=== PATIENT | male | born 1985 | race American Indian/Alaskan Native ===

== ENCOUNTER 2016-06-04 08:57 | Emergency (ER) | payer SELFPAY ==
--- NOTE | 2016-06-04 13:27 | ER ---
SUBJECTIVE: The patient is a 30-year-old, normally healthy male. he skinned his right fraga about 3 weeks ago. It is still not healed, was scabbing well and he hit it with a bar in the gym and ripped the scab off. It began to bleed again, so he comes in for evaluation and wondering it is taking so long to heal. He also has some skin rash and soreness on his left great toe. He does work out at the gym multiple times. He uses their showers. No other trauma or no shortness of breath. No fevers or chills. No drainage, no bleeding now. PAST MEDICAL HISTORY: Unremarkable. He states he is healthy. He does not take any medicines. No allergies. No substance abuse. REVIEW OF SYSTEMS: Unremarkable with the exception of the right fraga and the left great toe as discussed in HPI, please see HPI. OBJECTIVE: Vital Signs: Stable. He is afebrile. Healthy appearing. No distress. HEENT: Normocephalic, atraumatic. General: No respiratory distress. Good historian. Musculoskeletal: His right lower leg does show a scab over an area of his anterior midshin. There is mild warmth that is slightly red around the scab. There is no drainage or discharge or bleeding. He is forming a good scab and it appears to be in the process of healing. It is somewhat inflamed and it could be mildly infected. Extremities: Focused examination of his left great toe shows typical tinea pedis, not surprising as he works in the gym. There is peeling of the skin. ASSESSMENT: 1. Abrasions/contusion to right fraga area, 3 weeks ago. It is scabbing over and healing, with possible or mild infection in the area. 2. Tinea pedis. PLAN: Prescription for Lotrisone ointment to apply at the toe and feet and any areas where he has tinea. Prescription for Keflex to insure that the right lower extremity fraga contusion does not get worse or infected and allow to heal. Would soak feet in warm water, Epsom salts, mild detergent, 1 drop of bleach, and keep it clean and dry, and can apply the Lotrisone and get [id number] medications for athlete's foot too. [facility] /[id number]
== END 2016-06-04 09:49 | disposition home or self-care (01) ==
LOC: DL.ED 08:57
DX: B35.3 Tinea pedis (principal)
CPT/HCPCS: 99283

== ENCOUNTER 2017-03-25 04:20 | Emergency (ER) | payer SELFPAY ==
[2017-03-25] MEDS ORDERED: Sodium Chloride 0.9% 1,000 ML IV ONE (04:42)
[2017-03-25 05:07] LABS: CHLORIDE,CL 100 mmol/L (101-111); SODIUM,NA 134 mmol/L (135-145)
--- NOTE | 2017-03-25 05:48 | EDM.PDOCBH ---
<Eloise Gomez - Last Filed: 03/25/17 07:02> ED HPI GENERAL MEDICAL PROBLEM - General Chief Complaint: Behavioral/Psych Stated Complaint: TOOK "A LOT" OF PILLS [id number] Time Seen by Provider: 03/25/17 04:30 Source of Information: Reports: Patient History Limitations: Reports: No Limitations - History of Present Illness INITIAL COMMENTS - FREE TEXT/NARRATIVE: Reports taking 13 or 14 zoloft pills about 1-2 hours ago. Admitted to feeling depressed, nothing specific tonight different just everything piling up together. States more trying to get attention than to harm self. Denies previous attempts. Denies ingestion of alcohol or other drugs tonight. Nausea, no emesis. - Related Data Allergies Allergy/AdvReac Type Severity Reaction Status Date / Time No Known Allergies Allergy Verified 03/25/17 04:26 Home Meds: Home Meds . [No Known Home Meds] 10/16/13 [History] Past Medical History - Past Health History Medical/Surgical History: Denies Medical/Surgical History HEENT History: Reports: None Cardiovascular History: Reports: None Respiratory History: Reports: None Gastrointestinal History: Reports: None Genitourinary History: Reports: None Musculoskeletal History: Reports: None Neurological History: Reports: None Psychiatric History: Reports: None Endocrine/Metabolic History: Reports: None Hematologic History: Reports: None Immunologic History: Reports: None Oncologic (Cancer) History: Reports: None Dermatologic History: Reports: None - Past Surgical History Head Surgeries/Procedures: Reports: None HEENT Surgical History: Reports: Tonsillectomy Social & Family History - Family History Family Medical History: Noncontributory - Tobacco Use Smoking Status *Q: Current Every Day Smoker Years of Tobacco use: 15 Packs/Tins Daily: 0.9 Used Tobacco, but Quit: No Second Hand Smoke Exposure: Yes - Caffeine Use Caffeine Use: Reports: Coffee, Soda - Alcohol Use Days Per Week of Alcohol Use: 0 - Recreational Drug Use Recreational Drug Use: Yes Recreational Drug Type: Reports: Marijuana/Hashish ED ROS GENERAL - Review of Systems Review Of Systems: ROS reveals no pertinent complaints other than HPI. ED EXAM, BEHAVIORAL HEALTH - Physical Exam Exam: See Below Exam Limited By: No Limitations General Appearance: Alert, No Apparent Distress Eye Exam: Bilateral Eye: EOMI, PERRL (4mm) Ears: Normal External Exam Nose: Normal Inspection Throat/Mouth: Normal Inspection Head: Atraumatic, Normocephalic Neck: Normal Inspection Respiratory/Chest: No Respiratory Distress, Lungs Clear, Normal Breath Sounds Cardiovascular: Normal Peripheral Pulses, Regular Rate, Rhythm GI/Abdominal: Normal Bowel Sounds, Soft Back Exam: Normal Inspection Extremities: Normal Inspection Neurological: Alert, Normal Cognition, Oriented x 3. No: Tremor Psychiatric: Alert, Oriented, Flat Affect, Suicidal Thoughts Skin Exam: Warm, Dry, Intact, Normal color COURSE, BEHAVIORAL HEALTH COMP - Course Vital Signs: Last Vital Signs Temp 36.9 C 03/25/17 07:42 Pulse 88 03/25/17 04:23 Resp 20 03/25/17 07:42 BP 131/81 03/25/17 07:42 Pulse Ox 96 03/25/17 07:42 Orders, Labs, Meds: Active Orders 24 hr Category Date Time Status EKG 12 Lead [EKG Documentation Completion] [RC] URGENT Care 03/25/17 04:33 Active Laboratory Tests 03/25/17 03/25/17 03/25/17 Range/Units 04:42 04:42 04:42 WBC 6.5 (5.0-10.0) 10^3/uL RBC 4.84 (4.6-6.2) 10^6/uL Hgb 14.9 (14.0-18.0) g/dL Hct 43.1 (40.0-54.0) % MCV 89.0 (80-100) fL MCH 30.8 (27.0-34.0) pg MCHC 34.6 (33.0-35.0) g/dL Plt Count 279 (150-450) 10^3/uL Neut % (Auto) 59.2 (42.2-75.2) % Lymph % (Auto) 26.8 (20.5-50.1) % [place] % (Auto) 12.3 H (2-8) % Eos % (Auto) 1.4 (1.0-3.0) % Baso % (Auto) 0.3 (0.0-1.0) % Sodium 134 L (135-145) mmol/L Potassium 3.8 (3.6-5.0) mmol/L Chloride 100 L (101-111) mmol/L Carbon Dioxide 28.0 (21.0-31.0) mmol/L Anion Gap 9.8 BUN 12 (7-18) mg/dL Creatinine 0.7 (0.6-1.3) mg/dL Est Cr Clr Drug Dosing 167.83 mL/min Estimated GFR (MDRD) > 60 BUN/Creatinine Ratio 17.14 Glucose 88 (74-105) mg/dL Calcium 9.2 (8.4-10.2) mg/dl Total Bilirubin 0.9 (0.2-1.0) mg/dL AST 138 H (10-42) IU/L ALT 302 H (10-60) IU/L Alkaline Phosphatase 153 H (42-121) IU/L Creatine Kinase 169 (26-174) IU/L Total Protein 7.9 (6.7-8.2) g/dl Albumin 4.1 (3.2-5.5) g/dl Globulin 3.8 Albumin/Globulin Ratio 1.08 Urine Color (YELLOW) Urine Appearance (CLEAR) Urine pH (5.0-9.0) Ur Specific Blair (1.005-1.030) Urine Protein (NEGATIVE) Urine Glucose (UA) (NEGATIVE) Urine Ketones (NEGATIVE) Urine Occult Blood (NEGATIVE) Urine Nitrite (NEGATIVE) Urine Bilirubin (NEGATIVE) Urine Urobilinogen (0.2-1.0) mg/dL Ur Leukocyte Esterase (NEGATIVE) Urine RBC /HPF Urine WBC (0-5/HPF) /HPF Ur Epithelial Cells /HPF Urine Bacteria (0-FEW/HPF) /HPF Salicylates < 4.0 Urine Opiates Screen (NEGATIVE) Ur Oxycodone Screen (NEGATIVE) Urine Methadone Screen (NEGATIVE) Acetaminophen < 10.0 Ur Barbiturates Screen (NEGATIVE) U Tricyclic Antidepress (NEGATIVE) Ur Phencyclidine Scrn (NEGATIVE) Ur Amphetamine Screen (NEGATIVE) U Methamphetamines Scrn (NEGATIVE) Urine MDMA Screen (NEGATIVE) U Benzodiazepines Scrn (NEGATIVE) Urine Cocaine Screen (NEGATIVE) U Marijuana (THC) Screen (NEGATIVE) Ethyl Alcohol < 5 mg/dL 03/25/17 03/25/17 Range/Units 06:25 06:25 WBC (5.0-10.0) 10^3/uL RBC (4.6-6.2) 10^6/uL Hgb (14.0-18.0) g/dL Hct (40.0-54.0) % MCV (80-100) fL MCH (27.0-34.0) pg MCHC (33.0-35.0) g/dL Plt Count (150-450) 10^3/uL Neut % (Auto) (42.2-75.2) % Lymph % (Auto) (20.5-50.1) % [place] % (Auto) (2-8) % Eos % (Auto) (1.0-3.0) % Baso % (Auto) (0.0-1.0) % Sodium (135-145) mmol/L Potassium (3.6-5.0) mmol/L Chloride (101-111) mmol/L Carbon Dioxide (21.0-31.0) mmol/L Anion Gap BUN (7-18) mg/dL Creatinine (0.6-1.3) mg/dL Est Cr Clr Drug Dosing mL/min Estimated GFR (MDRD) BUN/Creatinine Ratio Glucose (74-105) mg/dL Calcium (8.4-10.2) mg/dl Total Bilirubin (0.2-1.0) mg/dL AST (10-42) IU/L ALT (10-60) IU/L Alkaline Phosphatase (42-121) IU/L Creatine Kinase (26-174) IU/L Total Protein (6.7-8.2) g/dl Albumin (3.2-5.5) g/dl Globulin Albumin/Globulin Ratio Urine Color Yellow (YELLOW) Urine Appearance Clear (CLEAR) Urine pH 6.0 (5.0-9.0) Ur Specific Blair 1.015 (1.005-1.030) Urine Protein Negative (NEGATIVE) Urine Glucose (UA) Negative (NEGATIVE) Urine Ketones Negative (NEGATIVE) Urine Occult Blood Negative (NEGATIVE) Urine Nitrite Negative (NEGATIVE) Urine Bilirubin Negative (NEGATIVE) Urine Urobilinogen 0.2 (0.2-1.0) mg/dL Ur Leukocyte Esterase Negative (NEGATIVE) Urine RBC 0-5 /HPF Urine WBC 0-5 (0-5/HPF) /HPF Ur Epithelial Cells Occasional /HPF Urine Bacteria Occasional (0-FEW/HPF) /HPF Salicylates Urine Opiates Screen Negative (NEGATIVE) Ur Oxycodone Screen Negative (NEGATIVE) Urine Methadone Screen Negative (NEGATIVE) Acetaminophen Ur Barbiturates Screen Negative (NEGATIVE) U Tricyclic Antidepress Negative (NEGATIVE) Ur Phencyclidine Scrn Negative (NEGATIVE) Ur Amphetamine Screen Positive H (NEGATIVE) U Methamphetamines Scrn Positive H (NEGATIVE) Urine MDMA Screen Negative (NEGATIVE) U Benzodiazepines Scrn Negative (NEGATIVE) Urine Cocaine Screen Negative (NEGATIVE) U Marijuana (THC) Screen Negative (NEGATIVE) Ethyl Alcohol mg/dL Medications Discontinued Medications Generic Name Dose Route Start Last Admin Trade Name Lizzy PRN Reason Stop Dose Admin Sodium Chloride 1,000 mls @ 999 mls/hr 03/25/17 04:42 03/25/17 04:50 Normal Saline IV 03/25/17 05:42 999 mls/hr .BOLUS ONE Administration Re-Assessment/Re-Exam: girlfriend at bedside. Patient notes some nausea. Admits hx ETOH at least 2x/ week up to one gallon. Care tx to Anny Arriaga NP. Departure - Departure Disposition: Eloped 07 Clinical Impression: Depressive disorder Overdose Qualifiers: Encounter type: initial encounter Injury intent: undetermined intent Qualified Code(s): T50.904A - Poisoning by unspecified drugs, medicaments and biological substances, undetermined, initial encounter - Discharge Information Instructions: Serotonin Syndrome, Drug Overdose Forms: ED Department Discharge Additional Instructions: Discharge home with family. Do not take medications in an inappropriate manner. Contract for safety if you feel at any time that you are suicidal or have an intent to harm self or others please call 911 which have verbally agreed to as a contract for safety. Return to emergency department if new or worsening symptoms. Follow-up with primary care provider in the next week for further care and evaluation of current episode. <Nikhil Arriaga - Last Filed: 03/25/17 12:40> COURSE, BEHAVIORAL HEALTH COMP - Course Re-Assessment/Re-Exam: Assumed care of this patient at 0700 hrs. this morning. He has been kept under observation under the extended stay in the emergency department for continued observation as guided by poison control for the 8 hours. He is resting without any complaints per the nursing staff. The crisis line people did come and evaluate the patient in the hospital and did not feel that he needed any acute inpatient management or follow-up at this time. We will discharge him home today with family and follow-up with primary care in the next week for evaluation of continued counseling or concerns of misuse of medications. Although when the patient was told that he was going to be discharged after my evaluation at 1200 he left AMA and was unable to be located in the facility. The monitoring period directed by Poison control has been met. Departure - Departure Time of Disposition: 11:50 - Assessment/Plan Assessment:: Intentional sertraline overdose. Denies suicidal ideation unsure of intent. Observation without complications as guided by poison control. Depression Plan: Discharge home with family. Do not take medications in an inappropriate manner. Contract for safety if you feel at any time that you are suicidal or have an intent to harm self or others please call 911 which have verbally agreed to as a contract for safety. Return to emergency department if new or worsening symptoms. Follow-up with primary care provider in the next week for further care and evaluation of current episode.
[2017-03-25 06:17] LABS: ACETAMINOPHEN < 10.0
[2017-03-25 07:43] VITALS: BP 131/81
--- NOTE | 2017-03-26 13:01 | EKG ---
03/25/2017 - DAMION STRANGE - FINDINGS: This 12-lead EKG shows a normal sinus rhythm with a ventricular rate of 79, normal axis and intervals. There are 1 to 2 mm Q-waves seen in the inferior leads of unknown significance or age. There are subtle ST-segment elevations seen in multiple leads of unknown significance (pericarditis?). No acute ST-T wave changes. [facility] /[id number] MTDD
== END 2017-03-25 11:55 | disposition left against medical advice (07) ==
LOC: DL.ED 04:20
DX: T43.222A Poisoning by selective serotonin reuptake inhibitors, intentional self-harm, initial encounter (principal); R11.0 Nausea; F32.9 Major depressive disorder, single episode, unspecified
CPT/HCPCS: 36415; 80053; 80305; 81001; 82550; 85025; 93005; 93010; 96360; 99285; G0480; J7030; 99283